=== PATIENT | female | born 1995 | race Two or more races ===

== ENCOUNTER 2021-04-01 08:53 | Inpatient (IN) | payer OTHER ==
[2021-04-01] MEDS ORDERED: ELECTROLYTE-148 SOLN 1,000 ML IV SCH ×2 (17:30→20:45)
[2021-04-01 17:36] VITALS: BMI 34.0
[2021-04-01] MEDS ORDERED: PROMETHAZINE HCL 25 MG/1 ML VIAL ONE (17:51)
[2021-04-01] MEDS ORDERED: BUTORPHANOL TARTRATE 2 MG/ML VIAL ONE (17:51)
[2021-04-01] MEDS ORDERED: BUTORPHANOL TARTRATE 2 MG/ML VIAL IVPB ONE (18:00)
[2021-04-01 19:03] LABS: BASO % 0.2 % (0-2.0); EOS % 0.1 % (0-4.5); HEMOGLOBIN 12.8 GM/dL (10.7-15.3); LYMPH % 8.1 % (8-40); MCH 32.3 pg (25.7-33.7); MCHC 34.5 g/dl (32.0-36.0); MEAN CELL VOLUME 93.6 fl (80-96); MEAN PLT VOLUME 11.6 fl (7.5-11.1); MONO % 3.3 % (3.8-10.2); NEUT % 88.3 % (42.8-82.8); PLATELET COUNT 167 10^3/uL (134-434); RBC 3.95 M/mm3 (3.60-5.2); WHITE BLOOD COUNT 12.2 K/mm3 (4.0-10.0)
[2021-04-01 19:18] LABS: ACTIVATED PTT 26.6 SECONDS (25.2-36.5)
[2021-04-01 19:19] LABS: INR 0.88 (0.83-1.09); PROTHROMBIN TIME (PATIENT) 10.8 SEC (9.7-13.0)
[2021-04-01 19:51] LABS: BLOOD UREA NITROGEN 7.7 mg/dL (7-18); CALCIUM 8.7 mg/dL (8.5-10.1)
[2021-04-01 19:53] LABS: CREATININE 0.5 mg/dL (0.55-1.3)
[2021-04-01] MEDS ORDERED: CITRIC ACID/SODIUM CITRATE 30 ML UNIT-DOSE CUP PO ONE (20:41)
[2021-04-01] MEDS ORDERED: ELECTROLYTE-148 SOLN 500 ML IV ONE (20:41)
[2021-04-01] MEDS ORDERED: morphine SULFATE (PF) 1 MG/2 ML SYRINGE ONE (20:51)
[2021-04-01] MEDS ORDERED: MIDAZOLAM HCL 2 MG/2 ML SINGLE DOSE VIAL ONE ×2 (21:29→21:50)
[2021-04-01] MEDS ORDERED: PROPOFOL 20 ML ONE (21:59)
[2021-04-01] MEDS ORDERED: ACETAMINOPHEN 325 MG TABLET (FP) PO PRN (22:31)
[2021-04-01] MEDS ORDERED: METHYLERGONOVINE MALEATE 0.2 MG/1 ML AMP IM PRN (22:31)
[2021-04-01] MEDS ORDERED: IBUPROFEN 800 MG/8 ML IJ IVPB PRN (22:31)
[2021-04-01] MEDS ORDERED: OXYTOCIN 20 UNITS in 0.9% NS 20 UNIT/1,000 ML INFUS.BAG IV SCH (22:45)
[2021-04-01] MEDS ORDERED: IBUPROFEN 800 MG/8 ML IJ IVPB ONE (22:54)
[2021-04-02 06:25] LABS: BASO % 0.4 % (0-2.0); EOS % 0.3 % (0-4.5); HEMATOCRIT 32.7 % (32.4-45.2); HEMOGLOBIN 11.4 GM/dL (10.7-15.3); LYMPH % 18.2 % (8-40); MCHC 34.9 g/dl (32.0-36.0); MEAN CELL VOLUME 94.4 fl (80-96); MEAN PLT VOLUME 11.3 fl (7.5-11.1); MONO % 4.9 % (3.8-10.2); NEUT % 76.2 % (42.8-82.8); PLATELET COUNT 134 10^3/uL (134-434); RBC 3.46 M/mm3 (3.60-5.2); RDW 13.9 % (11.6-15.6); WHITE BLOOD COUNT 10.9 K/mm3 (4.0-10.0)
[2021-04-02] MEDS: PRENATAL VITAMINS W/ FOLIC ACID TABLET (FP) PO SCH (09:17)
[2021-04-02] MEDS: oxyCODONE HCL 5 MG TABLET PO PRN ×3 (09:18→22:35)
[2021-04-02] MEDS: SIMETHICONE 80 MG TAB.CHEW (FP) PO PRN ×3 (09:19→22:35)
[2021-04-02] MEDS: IBUPROFEN 600 MG TABLET (FP) PO PRN (15:50)
[2021-04-02] MEDS ORDERED: diphenhydrAMINE HCL 25 MG CAPSULE (FP) PO PRN (19:59)
[2021-04-02] MEDS ORDERED: BISACODYL 10 MG SUPP.RECT RC PRN (22:31)
[2021-04-02] MEDS: SENNOSIDES/DOCUSATE COMBO (SENNA PLUS) TABLET (UD) PO PRN (22:35)
[2021-04-03] MEDS: oxyCODONE HCL 5 MG TABLET PO PRN ×4 (03:58→18:09)
[2021-04-03] MEDS: PRENATAL VITAMINS W/ FOLIC ACID TABLET (FP) PO SCH (09:50)
[2021-04-03] MEDS: SIMETHICONE 80 MG TAB.CHEW (FP) PO PRN ×3 (09:50→18:08)
[2021-04-03] MEDS: IBUPROFEN 600 MG TABLET (FP) PO PRN (18:08)
[2021-04-04] MEDS: IBUPROFEN 600 MG TABLET (FP) PO PRN ×2 (00:21→14:32)
[2021-04-04] MEDS: SENNOSIDES/DOCUSATE COMBO (SENNA PLUS) TABLET (UD) PO PRN (00:21)
[2021-04-04] MEDS: SIMETHICONE 80 MG TAB.CHEW (FP) PO PRN (00:21)
[2021-04-04] MEDS: oxyCODONE HCL 5 MG TABLET PO PRN ×3 (00:22→12:14)
[2021-04-04 12:04] VITALS: BP 125/80; PULSE 90; TEMP 98.2
[2021-04-04] MEDS: PRENATAL VITAMINS W/ FOLIC ACID TABLET (FP) PO SCH (12:15)
== END 2021-04-04 15:00 | disposition home or self-care (01) | DRG 540 ==
LOC: JDEL 08:53 → JLDR 16:45 → J3W 04-02 00:59
PROVIDERS: ADMIT Obstetrics & Gynecology; ATTEND Obstetrics & Gynecology
PROC: 10D00Z1 Extraction of Products of Conception, Low, Open Approach (ICD-10-PCS; principal; 2021-04-01)
DX: O62.9 Abnormality of forces of labor, unspecified (principal); O24.420 Gestational diabetes mellitus in childbirth, diet controlled; O77.0 Labor and delivery complicated by meconium in amniotic fluid; O69.81X0 Labor and delivery complicated by cord around neck, without compression, not applicable or unspecified; O69.89X0 Labor and delivery complicated by other cord complications, not applicable or unspecified; Z37.0 Single live birth; Z3A.38 38 weeks gestation of pregnancy
CPT/HCPCS: 36415; 59025; 80048; 85025; 85610; 85730; 86780; 86850; 86900; 86901; 88307-TC; C9803; U0003; U0005